=== PATIENT | female | born 1960 | race Hispanic/Latino ===

== ENCOUNTER 2023-04-10 05:54 | Day surgery (SDC) | payer OTHER ==
[2023-04-09 09:12] VITALS: BMI 28.3
[2023-04-10] MEDS ORDERED: PROPOFOL 40 ML ONE (07:41)
[2023-04-10] MEDS ORDERED: Lidocaine 1% PF 5 ML VIAL ONE (07:41)
== END 2023-04-10 09:00 | disposition home or self-care (01) ==
LOC: CSHSDC 05:54
PROVIDERS: ATTEND Internal Medicine Gastroenterology
PROC: 0DJD8ZZ Inspection of Lower Intestinal Tract, Via Natural or Artificial Opening Endoscopic (ICD-10-PCS; principal; 2023-04-10)
DX: K57.30 Diverticulosis of large intestine without perforation or abscess without bleeding (principal); G43.909 Migraine, unspecified, not intractable, without status migrainosus; I10 Essential (primary) hypertension; R19.5 Other fecal abnormalities; E78.5 Hyperlipidemia, unspecified; J30.2 Other seasonal allergic rhinitis
CPT/HCPCS: J2704